=== PATIENT | female | born 1960 | race Caucasian/White ===

== ENCOUNTER → 2016-12-30 | Outpatient (CLI) | payer OTHER ==
[2014-01-24 15:17] VITALS: BP 131/83
[~2016-12-30] MED LIST: ATEN100T PO; ATEN50TA PO; LOSA50TA6 PO; SPIR25TA3 PO
--- NOTE | 2016-12-30 12:12 | RAD ---
APPROVED REPORT Patient Location : OUT-PATIENT Indications Lower Extremity Pain : Bilateral Stasis Disease Lower Extremity Edema : Bilateral Restless Leg Varicose Veins Risk Factors Family History of Varicose Veins Obesity Deep System Deep Venous Thrombosis present : No Perforators Thigh Perforators Calf Perforators Right: cm up from medial heel 18cm back from the anterior border of tibia 13 diameter 14mm. Left: cm up from medial heel 14cm back from the anterior border of tibia 11 diameter 15mm. Findings Falcon scale images of the bilateral great saphenous veins do not reveal any evidence of thrombus. The bilateral saphenofemoral junctions appear compressible without any evidence of thrombus. The great sa phenous vein is compressible throughout its course. The vein measures approximately 6 mm and has a re flux time of less than one second on the right side and on the left side measures approximately 6 mm and has a reflux time again of less than 1 second. A right-sided [place]'s cyst measuring approximately 3.5 x 0.9 x 1.7 cm is noted. To calf perforators at approximately 18 cm and 33 cm up and 13 7 m back are noted on the right side. On the left side to perforators at 14, 23 cm up and 11 cm back are note d. Bilateral lesser saphenous veins could not be identified. Critical Notification Critical Value: No <Conclusion> 1. Negative for reflux in the bilateral greater saphenous veins. The lesser saphenous veins were unab le to be identified due to large size 2. Two right and left calf perforators noted.
== END | disposition home or self-care (01) ==
LOC: US 08:44
PROVIDERS: ATTEND Internal Medicine Cardiovascular Disease
DX: M79.604 Pain in right leg (principal); M79.605 Pain in left leg; M79.89 Other specified soft tissue disorders; E66.9 Obesity, unspecified; G25.81 Restless legs syndrome; R60.0 Localized edema
CPT/HCPCS: 93970